=== PATIENT | female | born 1965 | race American Indian/Alaskan Native ===

== ENCOUNTER 2020-11-04 14:08 | Emergency (ER) | payer MEDICAID ==
[2020-11-04 15:22] VITALS: BP 134/87
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
== END 2020-11-04 19:14 | disposition home or self-care (01) ==
LOC: ED 14:08
DX: S42.401A Unspecified fracture of lower end of right humerus, initial encounter for closed fracture (principal); S52.124A Nondisplaced fracture of head of right radius, initial encounter for closed fracture; M19.90 Unspecified osteoarthritis, unspecified site; I10 Essential (primary) hypertension; Z79.899 Other long term (current) drug therapy; Z98.890 Other specified postprocedural states; V49.49XA Driver injured in collision with other motor vehicles in traffic accident, initial encounter; Y92.410 Unspecified street and highway as the place of occurrence of the external cause; Y93.89 Activity, other specified; Y99.8 Other external cause status

== ENCOUNTER 2021-01-07 13:22 | Outpatient (CLI) | payer MEDICAID ==
--- NOTE | 2021-01-07 15:53 | XRay Report ---
RIGHT ELBOW 4 VIEWS INDICATION / CLINICAL INFORMATION: RIGHT ELBOW PAIN. COMPARISON: 11/04/2020 FINDINGS: Once again, a lateral epicondylar fracture is seen which has now become significantly displaced cristina red to the prior exam. Signer Name: Kalpesh Villa MD FACR Signed: 01/07/2021 3:48 PM Workstation Name: [id number]
== END 2021-01-07 13:23 | disposition home or self-care (01) ==
LOC: XRAY 13:22
PROVIDERS: ATTEND Orthopaedic Surgery
DX: S42.301A Unspecified fracture of shaft of humerus, right arm, initial encounter for closed fracture (principal); S42.401A Unspecified fracture of lower end of right humerus, initial encounter for closed fracture; X58.XXXA Exposure to other specified factors, initial encounter; Y93.89 Activity, other specified; Y92.89 Other specified places as the place of occurrence of the external cause; Y99.8 Other external cause status; S42.431A Displaced fracture (avulsion) of lateral epicondyle of right humerus, initial encounter for closed fracture

== ENCOUNTER 2021-02-12 09:31 | Day surgery (SDC) | payer MEDICAID ==
[2021-02-10 15:12] LABS: Hematocrit 34.7 % (30.3-42.9); Hemoglobin 10.9 gm/dl (10.1-14.3); Mean Corpuscular HGB Conc 32 % (30-34); Mean Corpuscular Volume 69 fl (79-97); Platelet Count 326 K/mm3 (140-440); Red Blood Count 5.04 M/mm3 (3.65-5.03); Red Cell Distribution Width 20.2 % (13.2-15.2)
[2021-02-10 15:17] LABS: BUN/Creatinine Ratio 14; Blood Urea Nitrogen 14 mg/dL (7-17)
[2021-02-10 15:18] LABS: Calcium 8.8 mg/dL (8.4-10.2); Hemolysis Index 6
[~2021-02-12 09:31] MED LIST: ACETAMINOPHEN 500 MG TAB PO SCH; BUPIVACAINE-EPINEPHRINE/PF 0.25%-1:200,000 (10 ML) VIAL INFILTRATI ONE; BUPIVACAINE-EPINEPHRINE/PF 0.25%-1:200,000 (30 ML) VIAL INFILTRATI ONE; CELECOXIB 200 MG CAP PO NR; GABAPENTIN 300 MG CAP PO NR; LACTATED RINGERS 1,000 ML IV SCH; MIDAZOLAM 2 MG/2 ML INJ IV NR; NEOMY 40 MG/POLYMYXIN B 200,000 UNITS/ML (GU) AMPULE IR ONE; SODIUM CHLORIDE 0.9% IRR 1,500 ML BOTTLE IR ONE; ceFAZolin/Water 2 GM/20 ML 2 GM/20 ML SYRINGE IV NR; fentaNYL 100 MCG/2 ML INJ IV PRN
--- NOTE | 2021-02-12 10:35 | Anesthesia Consultation ---
Anesthesia Consult and Med Hx Date of service: 02/12/21 - Airway Anesthetic Teeth Evaluation: Partials ROM Head & Neck: Adequate Mental/Hyoid Distance: Adequate Mallampati Class: Class I Intubation Access Assessment: Good - Pre-Operative Health Status ASA Pre-Surgery Classification: ASA3 Proposed Anesthetic Plan: General Nerve Block: IS - Pulmonary Hx Smoking: Yes (quit 25yrs ago) Hx Respiratory Symptoms: No Hx Sleep Apnea: No (JULIANA PRE SCREEN HIGH RISK) - Cardiovascular System Hx Hypertension: No Hx Heart Attack/AMI: No Hx Percutaneous Transluminal Coronary Angioplasty (PTCA): No Hx Cardia Arrhythmia: No - Central Nervous System CVA: No Hx Psychiatric Problems: Yes (anxiety) - Endocrine Hx Renal Disease: No Hx Liver Disease: No Hx Insulin Dependent Diabetes: No Hx Non-Insulin Dependent Diabetes: No Hx Thyroid Disease: No - Other Systems Hx Obesity: Yes (BMI 47) - Additional Comments Anesthesia Medical History Comments: PMH RA, no recent steroids.
--- NOTE | 2021-02-12 10:35 | Anesthesia Day of Surgery ---
Anesthesia Day of Surgery - Day of Surgery Patient Examined: Yes Patient H&P Reviewed: Yes Patient is NPO: Yes
[2021-02-12] MEDS ORDERED: dexAMETHasone 4 MG/ML VIAL ONE (11:36)
[2021-02-12] MEDS ORDERED: BUPIVACAINE/PF (0.25%) 2.5 MG/ML 30 ML VIAL INFILTRATI ONE (11:36)
[2021-02-12] MEDS ORDERED: ROCURONIUM 50 MG/5 ML INJ IV ONE (12:51)
[2021-02-12] MEDS ORDERED: LIDOCAINE MPF (2%) 20 MG/1 ML VIAL 5 ML ONE (12:51)
[2021-02-12] MEDS ORDERED: propofoL 200 MG/20 ML VIAL IV ONE (12:52)
[2021-02-12] MEDS ORDERED: dexAMETHasone 20 MG/5 ML VIAL ONE (13:07)
[2021-02-12] MEDS ORDERED: ONDANSETRON 4 MG/2 ML INJ ONE (13:07)
[2021-02-12] MEDS ORDERED: NEOMY 40 MG/POLYMYXIN B 200,000 UNITS/ML (GU) AMPULE IR ONE (14:28)
[2021-02-12] MEDS ORDERED: SODIUM CHLORIDE 0.9% IRR 1,500 ML BOTTLE IR ONE (14:28)
[2021-02-12] MEDS ORDERED: LACTATED RINGERS 1,000 ML ONE (15:04)
[2021-02-12] MEDS ORDERED: GLYCOPYRROLATE 0.4 MG/2 ML INJ ONE (15:06)
[2021-02-12] MEDS ORDERED: NEOSTIGMINE 10MG/10 ML INJ MDV ONE (15:06)
--- NOTE | 2021-02-12 15:10 | Procedure Note ---
Date of procedure: 02/12/21 Pre-op diagnosis: 3-month-old right lateral condyle fracture humerus Post-op diagnosis: same Procedure: Open reduction internal fixation right lateral condyle distal humerus Procedure Patient was brought to the OR after being given axillary nerve block for postop pain management she was placed on the OR table supine following induction with MAC anesthesia the patient's right upper extremity was prepped and draped in the usual sterile manner. A timeout procedure was done to identify the patient and the correct operative site. The arm was exsanguinated followed by inflation of the pneumatic tourniquet to 250 mmHg A lateral incision was made over the distal humerus curving slightly anterior over the radiocapitellar joint this incision was then carried down deeply to fascia using the ridge of our distal humerus and the muscle was then split using periosteal elevators the fracture fragment was identified which was at this point displaced and rotated callus formation as well as abundant scar was also noted follow-up following a careful debridement of the fracture fragments both on the lateral condyle as well as the corresponding distal humerus the fracture fragments were manipulated into a more reduced position and held by way of K wire fixation using C arm visualization the fracture fragments were seen and appeared to be in good overall alignment following this to parallel interfragmentary screws were applied to compress the fracture this was then followed by application of a a locked lateral plate again C arm was used to assist and placement of our plates and screws AP and lateral views were obtained showing good reduction of the fracture next the wound was copiously irrigated and closed in a standard routine fashion postop dressings were applied as well as a well-padded posterior mold patient tolerated procedure there no complications Anesthesia: MAC, regional Surgeon: PATRIA FIELDS (Reza Green, 1st assist) Estimated blood loss: minimal Pathology: none Condition: stable Disposition: PACU
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
--- NOTE | 2021-02-12 16:24 | Post Anesthesia Evaluation ---
- Post Anesthesia Evaluation Patient Participated: Yes Airway Patent: Yes Stable Respiratory Function: Yes Nausea/Vomiting: No Temp > 96.8F: Yes Pain Manageable: Yes Adequeate Hydration: Yes Anesthesia Complications: No Block Receding Appropriately: Yes
[2021-02-12 21:00] VITALS: BP 140/94
== END 2021-02-12 09:32 | disposition home or self-care (01) ==
LOC: OR 09:31
PROVIDERS: ATTEND Orthopaedic Surgery
DX: S42.451D Displaced fracture of lateral condyle of right humerus, subsequent encounter for fracture with routine healing (principal); Z20.822 Contact with and (suspected) exposure to COVID-19; E78.00 Pure hypercholesterolemia, unspecified; E66.9 Obesity, unspecified; M19.90 Unspecified osteoarthritis, unspecified site; F41.9 Anxiety disorder, unspecified; Z79.899 Other long term (current) drug therapy; Z88.8 Allergy status to other drugs, medicaments and biological substances; Z87.891 Personal history of nicotine dependence; Z68.42 Body mass index [BMI] 45.0-49.9, adult; Z90.710 Acquired absence of both cervix and uterus; Z98.890 Other specified postprocedural states; Y82.8 Other medical devices associated with adverse incidents; Y92.89 Other specified places as the place of occurrence of the external cause
CPT/HCPCS: 24579; 36415; 64415; 64417; 73070; 80048; 85027; C1713; J0690; J1100; J2250; J2405; J2704; J2710; J3010; J7120; U0003